=== PATIENT | male | born 1930 | race Caucasian/White ===

== ENCOUNTER 2017-05-24 11:26 | Emergency (ER) | payer MEDICARE, OTHER ==
[2017-05-24] MEDS ORDERED: SODIUM CHLORIDE 0.9% 1,000 ML IV ONE (12:29)
--- NOTE | 2017-05-24 12:32 | ED Physician Documentation ---
PD HPI URI - Stated complaint Stated Complaint: COUGH - Chief complaint Chief Complaint: Heent - History obtained from History obtained from: Patient, Family - History of Present Illness Timing - onset: How many weeks ago (1) Timing duration: Weeks (1) Timing details: Gradual onset Pain level max: 0 Pain level now: 0 Associated symptoms: Fever (2 days ago), Chills, Nasal congestion, Rhinorrhea, Sore throat, Dry cough. No: Hemoptysis, Chest pain, Dyspnea Contributing factors: Sick contact (family at over the holidays) Improves by: Rest Worsened by: Activity, Other (feels weak and tired) Recently seen: Not recently seen - Additional information Additional information: has a history of colon cancer, not currently under treatment. Review of Systems Ten Systems: 10 systems reviewed and negative Constitutional: reports: Fever. denies: Chills Ears: denies: Ear pain Nose: reports: Rhinorrhea / runny nose, Congestion Throat: reports: Sore throat Respiratory: reports: Cough GI: denies: Abdominal Pain, Nausea, Vomiting, Diarrhea Skin: denies: Rash Musculoskeletal: denies: Neck pain, Back pain Neurologic: denies: Focal weakness, Numbness, Headache PD PAST MEDICAL HISTORY - Past Medical History Past Medical History: Yes Cardiovascular: Hypertension Respiratory: None Endocrine/Autoimmune: None GI: Colon polyps, Other : Benign prostate hypertrophy, Other HEENT: Chronic hearing loss Psych: None Musculoskeletal: None Derm: Other - Past Surgical History General: Bowel surgery, Colonoscopy, EGD, Other Ortho: Rotator cuff repair Cardiovascular: Other Derm: Other - Present Medications Home Medications: Ambulatory Orders Medication Instructions Recorded Confirmed Calcium Carbonate [Calcium] 600 mg PO DAILY 11/07/12 11/07/12 Flaxseed 340 gm PO DAILY 11/07/12 11/07/12 Magnesium 0 mg PO DAILY 11/07/12 11/07/12 Oregano Oil [Oil of Oregano] 1,500 mg PO DAILY 11/07/12 11/07/12 Ubidecarenone [Coq-10] 100 mg PO DAILY 11/07/12 11/07/12 Vitamin B Complex [B Complete] 1 each PO DAILY 11/07/12 11/07/12 Testosterone Cream 04/03/13 04/03/13 Azithromycin [Zithromax] 250 mg PO DAILY #4 tablet 05/24/17 Benzonatate [Tessalon Perle] 100 - 200 mg PO TID PRN #30 capsule 05/24/17 - Allergies Allergies/Adverse Reactions: Allergies Allergy/AdvReac Type Severity Reaction Status Date / Time pseudoephedrine HCl * Allergy Intermediate Diaphoresis Verified 05/24/17 11:46 [From Sudafed] milk AdvReac RUNNY NOSE Verified 05/24/17 11:46 - Social History Does the pt smoke?: No Smoking Status: Never smoker PD ED PE NORMAL - Vitals Vital signs reviewed: Yes - General General: Alert and oriented X 3, No acute distress - HEENT HEENT: Ears normal, Moist mucous membranes, Pharynx benign - Neck Neck: Supple, no meningeal sign, No adenopathy - Cardiac Cardiac: RRR - Respiratory Respiratory: No respiratory distress, Other (Rhonchi LLL) - Abdomen Abdomen: Soft, Non tender, Non distended - Derm Derm: Warm and dry, No rash - Neuro Neuro: Alert and oriented X 3 - Psych Psych: Normal mood, Normal affect Results - Vitals Vitals: Vital Signs - 24 hr 05/24/17 05/24/17 11:29 13:17 Temperature 37.4 C 37.5 C Heart Rate 71 73 Respiratory 17 20 Rate Blood Pressure 153/71 H 147/67 H O2 Saturation 96 97 Oxygen O2 Source Room air - Labs Labs: Laboratory Tests 05/24/17 05/24/17 12:45 12:45 WBC 7.8 RBC 4.62 L Hgb 13.9 L Hct 40.8 L MCV 88.3 MCH 30.1 MCHC 34.0 RDW 14.6 Plt Count 123 L MPV 7.1 L Neut # 6.2 Lymph # 0.8 L [place] # 0.7 Eos # 0.0 Baso # 0.0 Absolute Nucleated RBC 0.00 Nucleated RBC % 0.0 Sodium 135 Potassium 4.0 Chloride 100 L Carbon Dioxide 25 Anion Gap 10.0 BUN 16 Creatinine 1.1 Estimated GFR (MDRD) 63 L Glucose 107 H Calcium 8.9 Total Bilirubin 0.9 AST 32 ALT 19 Alkaline Phosphatase 63 Total Protein 7.1 Albumin 3.5 Globulin 3.6 Albumin/Globulin Ratio 1.0 Lipase 52 H - Rads (name of study) cxr Radiology: Prelim report reviewed, EMP read contemporaneously (appears to have a LLL infiltrate on my viewing), See rad report (No acute disease) PD MEDICAL DECISION MAKING - ED course Complexity details: reviewed results, re-evaluated patient, considered differential, d/w patient, d/w family ED course: Patient is an 86-year-old male who presents to the emergency department with what appears to be a left lower lobe pneumonia. Given Rocephin and azithromycin here. Also given IV fluids and feels better. He is well-appearing , nontoxic. Afebrile. No hypoxia. No respiratory distress. Will place him on antibiotics for home and follow-up closely with his doctor. Patient and family counseled regarding signs and symptoms for which I believe and urgent re- evaluation would be necessary. Patient with good understanding of and agreement to plan and is comfortable going home at this time This document was made in part using voice recognition software. While efforts are made to proofread this document, sound alike and grammatical errors may occur. Departure - Departure Disposition: 01 Home, Self Care Clinical Impression: Pneumonia Qualifiers: Pneumonia type: due to unspecified organism Laterality: left Lung location: lower lobe of lung Qualified Code(s): J18.1 - Lobar pneumonia, unspecified organism Condition: Good Instructions: ED Pneumonia Adult Follow-Up: Wiley Guerra MD [Primary Care Provider] - Within 1 week Prescriptions: Azithromycin [Zithromax] 250 mg PO DAILY #4 tablet Benzonatate [Tessalon Perle] 100 - 200 mg PO TID PRN #30 capsule PRN Reason: Cough Comments: Take all antibiotics until gone. Return if you worsen.
[2017-05-24 12:53] LABS: BASOPHILS % (AUTO) 0.4 %; HGB - HEMOGLOBIN 13.9 g/dL (14.0-18.0); LYMPHOCYTES # (AUTO) 0.8 10^3/uL (1.5-3.5); LYMPHOCYTES % (AUTO) 10.3 %; MEAN CORPUSCULAR HEMOGLOBIN 30.1 pg (27.0-31.0); MEAN CORPUSCULAR VOLUME 88.3 fL (80.0-94.0); MEAN PLATELET VOLUME 7.1 fL (7.4-11.4); MONOCYTES # (AUTO) 0.7 10^3/uL (0.0-1.0); MONOCYTES % (AUTO) 9.1 %; NEUTROPHILS # (AUTO) 6.2 10^3/uL (1.5-6.6); NEUTROPHILS % (AUTO) 80.2 %; PLT - PLATELET COUNT 123 10^3/uL (130-450); RED BLOOD COUNT 4.62 10^6/uL (4.70-6.10); RED CELL DISTRIBUTION WIDTH 14.6 % (12.0-15.0); WHITE BLOOD COUNT 7.8 x10^3/uL (4.8-10.8)
--- NOTE | 2017-05-24 12:57 | XRAY Preliminary Report ---
Exam: XR CHEST 2 VIEW PA/LAT IMPRESSION: COPD. No acute findings. [facility] SITE ID: [id number]
--- NOTE | 2017-05-24 13:00 | XRAY Report ---
EXAM: CHEST RADIOGRAPHY EXAM DATE: 05/24/2017 12:45 PM. CLINICAL HISTORY: Cough, fever. COMPARISON: Two-view chest 10/11/2011. TECHNIQUE: 2 views. FINDINGS: Lungs/Pleura: No focal opacities evident. No pleural effusion. No pneumothorax. Normal volumes. Mediastinum: Stable cardiomegaly. Other: There is flattening of the diaphragms. IMPRESSION: COPD. No acute findings. [facility] Referring Provider Line: [phone] SITE ID: [id number]
[2017-05-24 13:09] LABS: ALBUMIN 3.5 g/dL (3.2-5.5); BILIRUBIN,TOTAL 0.9 mg/dL (0.2-1.0); CALCIUM 8.9 mg/dL (8.5-10.3); CREATININE 1.1 mg/dL (0.6-1.2); TOTAL PROTEIN 7.1 g/dL (6.7-8.2)
[2017-05-24] MEDS ORDERED: cefTRIAXone 1 GM VIAL IVP STA (13:10)
[2017-05-24] MEDS ORDERED: AZITHROMYCIN 250 MG TABLET PO STA (13:11)
[2017-05-24 13:18] VITALS: BP 147/67
== END 2017-05-24 14:05 | disposition home or self-care (01) ==
LOC: ED 11:26
DX: J18.9 Pneumonia, unspecified organism (principal); I10 Essential (primary) hypertension; Z85.038 Personal history of other malignant neoplasm of large intestine; Z86.010 Personal history of colon polyps; N40.0 Benign prostatic hyperplasia without lower urinary tract symptoms
CPT/HCPCS: 36415; 71020; 80053; 83690; 85025; 96361; 96374; 99283; 99284; A9270

== ENCOUNTER 2017-08-01 11:11 | Outpatient (CLI) | payer MEDICARE, OTHER ==
[2017-08-01] MEDS ORDERED: IOPAMIDOL-300 100 ML VIAL IVP ONE ×3 (11:12→12:33)
[2017-08-01 11:58] LABS: CALCIUM 8.8 mg/dL (8.5-10.3); CREATININE 1.3 mg/dL (0.6-1.2)
[2017-08-01] MEDS ORDERED: IOPAMIDOL-300 100 ML VIAL ONE (12:38)
--- NOTE | 2017-08-01 15:49 | CT Report ---
CT SINUSES WITHOUT CONTRAST: 08/01/2017 CLINICAL INDICATION: Chronic sinusitis. TECHNIQUE: Axial CT images of the paranasal sinuses were obtained without contrast, following which sagittal and coronal reconstructions were performed. FINDINGS: There is mild mucosal thickening in the right maxillary sinus and left frontal sinus. The ostiomeatal units are patent bilaterally. No osseous destruction is seen. The nasal septum is midline. The visualized orbital contents are unremarkable. IMPRESSION: MILD CHRONIC SINUSITIS. CT DOSE REDUCTION STATEMENT In accordance with CT protocol optimization, one or more of the following dose reduction techniques were utilized for this exam: automated exposure control, adjustment of mA and/or KV based on patient size, or use of iterative reconstructive technique. TD: 08/01/2017 15:48
--- NOTE | 2017-08-01 15:52 | CT Report ---
CT CHEST WITH CONTRAST: 08/01/2017 CLINICAL INDICATION: Cough. TECHNIQUE: Axial CT images of the chest were obtained with 80 mL Isovue 300 intravenously. COMPARISON: 11/03/2010. FINDINGS: The heart and great vessels demonstrate mild atherosclerotic calcification. No hilar or mediastinal lymphadenopathy is present. The lungs demonstrate dependent atelectasis. No suspicious pulmonary nodule or mass lesion is present. No effusion or pneumothorax is seen. Osseous structures demonstrate degenerative changes. Limited evaluation of upper abdominal structures demonstrates normal adrenal glands. IMPRESSION: MILD ATELECTASIS. NO EVIDENCE OF ACUTE CARDIOPULMONARY DISEASE. CT DOSE REDUCTION STATEMENT In accordance with CT protocol optimization, one or more of the following dose reduction techniques were utilized for this exam: automated exposure control, adjustment of mA and/or KV based on patient size, or use of iterative reconstructive technique. TD: 08/01/2017 15:51
== END 2017-08-01 11:12 | disposition home or self-care (01) ==
LOC: DI.S 11:11 → DI 11:12
PROVIDERS: ATTEND Physician Assistant Medical
DX: J32.9 Chronic sinusitis, unspecified (principal); J98.11 Atelectasis
CPT/HCPCS: 36415; 70486; 71260; 80048; Q9967

== ENCOUNTER 2017-10-31 08:00 | Outpatient (CLI) | payer MEDICARE, OTHER ==
[2017-10-31 19:08] LABS: BASOPHILS % (AUTO) 0.3 %; EOSINOPHILS % (AUTO) 0.1 %; HGB - HEMOGLOBIN 15.4 g/dL (14.0-18.0); LYMPHOCYTES # (AUTO) 1.8 10^3/uL (1.5-3.5); MEAN CORPUSCULAR HEMOGLOBIN 29.7 pg (27.0-31.0); MEAN CORPUSCULAR HGB CONC 33.5 g/dL (32.0-36.0); MEAN CORPUSCULAR VOLUME 88.8 fL (80.0-94.0); MEAN PLATELET VOLUME 7.7 fL (7.4-11.4); MONOCYTES # (AUTO) 0.6 10^3/uL (0.0-1.0); MONOCYTES % (AUTO) 8.3 %; NEUTROPHILS # (AUTO) 5.3 10^3/uL (1.5-6.6); NEUTROPHILS % (AUTO) 68.3 %; PLT - PLATELET COUNT 176 10^3/uL (130-450); RED BLOOD COUNT 5.17 10^6/uL (4.70-6.10); WHITE BLOOD COUNT 7.8 x10^3/uL (4.8-10.8)
[2017-10-31 19:36] LABS: ALBUMIN/GLOBULIN RATIO 1.2 (1.0-2.2); ALKALINE PHOSPHATASE 77 IU/L (42-121); ALT ALANINE AMINOTRANSFERASE 20 IU/L (10-60); AST ASPARTATE AMINOTRANSFERASE 27 IU/L (10-42); BUN - BLOOD UREA NITROGEN 19 mg/dL (6-20); CALCIUM 8.9 mg/dL (8.5-10.3); CARBON DIOXIDE - CO2 28 mmol/L (21-32); CHLORIDE 105 mmol/L (101-111); CHOL/HDL RATIO 5.1 (<5.0); CHOLESTEROL 178 mg/dL; CREATININE 1.2 mg/dL (0.6-1.2); GFR - MDRD 57 (>89); GLUCOSE 92 mg/dL (70-100); HDL CHOLESTEROL 35 mg/dL; LDL CHOLESTEROL,CALCULATED 126 mg/dL; LDL/HDL RATIO 3.6 (<3.6); SODIUM 138 mmol/L (135-145); TOTAL PROTEIN 7.4 g/dL (6.7-8.2); VLDL CHOLESTEROL 17 mg/dL
== END 2017-10-31 08:01 | disposition home or self-care (01) ==
LOC: LAB.WCP 08:00
PROVIDERS: ATTEND Physician Assistant Medical
DX: E78.5 Hyperlipidemia, unspecified (principal); C61 Malignant neoplasm of prostate
CPT/HCPCS: 36415; 80053; 80061; 83721; 84153; 85025

== ENCOUNTER 2018-03-28 09:53 | Outpatient (CLI) | payer MEDICARE, OTHER ==
--- NOTE | 2018-03-28 14:16 | MRI Report ---
Reason: FACIAL DROOP Procedure Date: 03/28/2018 Accession Number: [id number] / [id number] Procedure: MRI - Brain W/O CPT Code: FULL RESULT: EXAM: MRI BRAIN WITHOUT CONTRAST EXAM DATE: 03/28/2018 11:28 AM. CLINICAL HISTORY: Facial droop. COMPARISON: None. TECHNIQUE: Multiplanar, multisequence T1-weighted and fluid-sensitive MR sequences of the brain were performed. Sequences optimized for routine evaluation. Other: Thin section axial T2 weighted FFE 3D through the internal auditory canals. IV Contrast: None. FINDINGS: Brain Volume: Mild generalized probably age-related cerebral volume loss. Parenchyma/Dura: No mass, acute infarct or hemorrhage. Moderately prominent patchy, nodular and confluent bilateral cerebral white matter disease. Findings are nonspecific, but consistent with fairly prominent chronic microangiopathy and age-related white matter signal changes. Ventricles/Cisterns: No hydrocephalus. No abnormal extra-axial fluid collection or hemorrhage. Orbits: Bilateral lens extractions. Sella Turcica: No evidence for space-occupying mass. IAC: No space-occupying mass or nodule. Unremarkable contours of the canalicular and cisternal segments of the 7th and 8th cranial nerves. Fluid signal is present within the inner ear structures bilaterally as expected. Vasculature: Normal signal flow void is seen in the major arterial structures at the skull base. Sinuses: Mild nonspecific ethmoid sinus mucosal thickening. The nasal septum is bowed to the right of midline. Bones: No focal pathologic appearing marrow signal changes. Other: Just below the occiput, superficial subcutaneous midline rounded sharply demarcated 2.4 mm nodule, just under the skin, likely an incidental sebaceous cyst. IMPRESSION: 1. Chronic generalized age-related changes. 2. No acute intracranial abnormality. 3. No evidence for space-occupying lesion in the regions of the internal auditory canals. [facility]
== END 2018-03-28 09:54 | disposition home or self-care (01) ==
LOC: DI 09:53
PROVIDERS: ATTEND Family Medicine
DX: R29.810 Facial weakness (principal)
CPT/HCPCS: 70551

== ENCOUNTER 2018-04-09 10:15 | Outpatient (CLI) | payer MEDICARE, OTHER ==
[2018-04-09 13:14] LABS: BASOPHILS % (AUTO) 0.2 %; EOSINOPHILS % (AUTO) 0.2 %; HGB - HEMOGLOBIN 15.1 g/dL (14.0-18.0); LYMPHOCYTES # (AUTO) 1.6 10^3/uL (1.5-3.5); LYMPHOCYTES % (AUTO) 25.4 %; MEAN CORPUSCULAR HEMOGLOBIN 31.5 pg (27.0-31.0); MEAN CORPUSCULAR HGB CONC 35.4 g/dL (32.0-36.0); MEAN PLATELET VOLUME 7.7 fL (7.4-11.4); MONOCYTES # (AUTO) 0.5 10^3/uL (0.0-1.0); MONOCYTES % (AUTO) 8.3 %; NEUTROPHILS # (AUTO) 4.1 10^3/uL (1.5-6.6); NEUTROPHILS % (AUTO) 65.9 %; PLT - PLATELET COUNT 153 10^3/uL (130-450); RED BLOOD COUNT 4.78 10^6/uL (4.70-6.10); RED CELL DISTRIBUTION WIDTH 13.8 % (12.0-15.0); WHITE BLOOD COUNT 6.2 x10^3/uL (4.8-10.8)
[2018-04-09 13:26] LABS: ALBUMIN 3.9 g/dL (3.2-5.5); ALBUMIN/GLOBULIN RATIO 1.3 (1.0-2.2); ALKALINE PHOSPHATASE 81 IU/L (42-121); ALT ALANINE AMINOTRANSFERASE 19 IU/L (10-60); AST ASPARTATE AMINOTRANSFERASE 27 IU/L (10-42); BILIRUBIN,TOTAL 0.9 mg/dL (0.2-1.0); BUN - BLOOD UREA NITROGEN 19 mg/dL (6-20); CALCIUM 8.7 mg/dL (8.5-10.3); CARBON DIOXIDE - CO2 29 mmol/L (21-32); CHLORIDE 105 mmol/L (101-111); CHOL/HDL RATIO 4.6 (<5.0); CHOLESTEROL 158 mg/dL; CREATININE 1.3 mg/dL (0.6-1.2); GFR - MDRD 52 (>89); GLUCOSE 105 mg/dL (70-100); HDL CHOLESTEROL 34 mg/dL; LDL CHOLESTEROL,CALCULATED 93 mg/dL; LDL/HDL RATIO 2.7 (<3.6); SODIUM 140 mmol/L (135-145); TOTAL PROTEIN 6.9 g/dL (6.7-8.2); VLDL CHOLESTEROL 31 mg/dL
[2018-04-09 13:50] LABS: FOLATE 21.84 ng/mL (5.90 - >24.8)
== END 2018-04-09 10:16 | disposition home or self-care (01) ==
LOC: LAB.WCP 10:15
PROVIDERS: ATTEND Family Medicine
DX: I10 Essential (primary) hypertension (principal); E78.5 Hyperlipidemia, unspecified; R41.3 Other amnesia
CPT/HCPCS: 36415; 80053; 80061; 82607; 82746; 83721; 85025

== ENCOUNTER 2018-12-06 08:00 | Outpatient (CLI) | payer MEDICARE, OTHER ==
[2018-12-06 18:32] LABS: BASOPHILS % (AUTO) 0.2 %; EOSINOPHILS # (AUTO) 0.1 10^3/uL (0.0-0.7); HGB - HEMOGLOBIN 15.8 g/dL (14.0-18.0); LYMPHOCYTES # (AUTO) 1.8 10^3/uL (1.5-3.5); MEAN CORPUSCULAR HGB CONC 32.6 g/dL (32.0-36.0); MEAN CORPUSCULAR VOLUME 92.2 fL (80.0-94.0); MONOCYTES # (AUTO) 0.7 10^3/uL (0.0-1.0); MONOCYTES % (AUTO) 8.9 %; NEUTROPHILS # (AUTO) 5.5 10^3/uL (1.5-6.6); NEUTROPHILS % (AUTO) 67.7 %; PLT - PLATELET COUNT 180 10^3/uL (130-450); RED BLOOD COUNT 5.26 10^6/uL (4.70-6.10); RED CELL DISTRIBUTION WIDTH 14.3 % (12.0-15.0); WHITE BLOOD COUNT 8.1 x10^3/uL (4.8-10.8)
[2018-12-06 18:54] LABS: ALBUMIN 4.1 g/dL (3.2-5.5); ALBUMIN/GLOBULIN RATIO 1.3 (1.0-2.2); ALKALINE PHOSPHATASE 88 IU/L (42-121); ALT ALANINE AMINOTRANSFERASE 20 IU/L (10-60); AST ASPARTATE AMINOTRANSFERASE 26 IU/L (10-42); BUN - BLOOD UREA NITROGEN 21 mg/dL (6-20); CALCIUM 9.2 mg/dL (8.5-10.3); CARBON DIOXIDE - CO2 28 mmol/L (21-32); CHLORIDE 106 mmol/L (101-111); CHOL/HDL RATIO 4.2 (<5.0); CHOLESTEROL 157 mg/dL; CREATININE 1.4 mg/dL (0.6-1.2); GFR - MDRD 48 (>89); GLUCOSE 103 mg/dL (70-100); HDL CHOLESTEROL 37 mg/dL; LDL CHOLESTEROL,CALCULATED 78 mg/dL; LDL/HDL RATIO 2.1 (<3.6); SODIUM 143 mmol/L (135-145); TOTAL PROTEIN 7.2 g/dL (6.7-8.2); VLDL CHOLESTEROL 42 mg/dL
== END 2018-12-06 08:01 | disposition home or self-care (01) ==
LOC: LAB.WCP 08:00
PROVIDERS: ATTEND Family Medicine
DX: E78.5 Hyperlipidemia, unspecified (principal); I10 Essential (primary) hypertension; R00.0 Tachycardia, unspecified
CPT/HCPCS: 36415; 80053; 80061; 83721; 84443; 85025

== ENCOUNTER 2019-06-03 12:19 | Emergency (ER) | payer MEDICARE, OTHER ==
--- NOTE | 2019-06-03 12:29 | ED Physician Documentation ---
History of Present Illness - Stated complaint Stated Complaint: CP, SORE LT ARM/SHOULDER - Additonal information Additional information: This is an 88-year-old male with a history hypertension and a ventral hernia, who presents with left-sided chest pain and left shoulder pain. This began several days ago in the absence of any inciting factors, patient denies obvious trauma or straining events. He follows with Dr. Nena Starr of cardiology, he reportedly had a stress test and echocardiogram, and they as far as they know look okay. Patient denies shortness of breath, denies hemoptysis. He has had a bit of a cough. He describes that chest pain is a constant soreness, moderate in severity, It is located over the lateral chest and the anterior shoulder, and is reproducible with certain movements and with pressure in the area. No history of blood clots, no leg swelling, no pain with breathing. Review of Systems Constitutional: denies: Fever Nose: denies: Rhinorrhea / runny nose Cardiac: reports: Chest pain / pressure Respiratory: reports: Cough Skin: denies: Rash Neurologic: denies: Generalized weakness, Syncope PD PAST MEDICAL HISTORY - Past Medical History Cardiovascular: Hypertension Respiratory: None Endocrine/Autoimmune: None GI: Colon polyps, Other : Benign prostate hypertrophy, Other HEENT: Chronic hearing loss Psych: None Musculoskeletal: None Derm: Other - Past Surgical History General: Bowel surgery, Colonoscopy, EGD, Other Ortho: Rotator cuff repair Cardiovascular: Other Derm: Other - Present Medications Home Medications: Ambulatory Orders Medication Instructions Recorded Confirmed Calcium Carbonate [Calcium] 600 mg PO DAILY 11/07/12 11/07/12 Flaxseed 340 gm PO DAILY 11/07/12 11/07/12 Magnesium 0 mg PO DAILY 11/07/12 11/07/12 Oregano Oil [Oil of Oregano] 1,500 mg PO DAILY 11/07/12 11/07/12 Ubidecarenone [Coq-10] 100 mg PO DAILY 11/07/12 11/07/12 Vitamin B Complex [B Complete] 1 each PO DAILY 11/07/12 11/07/12 Testosterone Cream 04/03/13 04/03/13 Azithromycin [Zithromax] 250 mg PO DAILY #4 tablet 05/24/17 Benzonatate [Tessalon Perle] 100 - 200 mg PO TID PRN #30 capsule 05/24/17 - Allergies Allergies/Adverse Reactions: Allergies Allergy/AdvReac Type Severity Reaction Status Date / Time pseudoephedrine HCl * Allergy Intermediate Diaphoresis Verified 06/03/19 12:30 [From Sudafed] milk AdvReac RUNNY NOSE Verified 06/03/19 12:30 - Social History Does the pt smoke?: No Smoking Status: Never smoker PD ED PE NORMAL - Vitals Vital signs reviewed: Yes - General General: Alert and oriented X 3, No acute distress - HEENT HEENT: PERRL - Neck Neck: Supple, no meningeal sign - Cardiac Cardiac: RRR - Respiratory Respiratory: No respiratory distress, Clear bilaterally, Other (Chest de la o normal in appearance, patient has some tenderness to palpation over the lateral left upper chest wall just anterior to the axilla, and also on the left anterior deltoid. Strength and neurovascular exam is normal.) - Abdomen Abdomen: Soft, Non tender, Non distended - Derm Derm: Warm and dry - Extremities Extremities: No deformity - Neuro Neuro: Alert and oriented X 3 - Psych Psych: Normal mood, Normal affect Results - Vitals Vitals: Vital Signs - 24 hr 06/03/19 06/03/19 06/03/19 12:26 14:00 14:30 Temperature 36.8 C Heart Rate 81 73 77 Respiratory 18 18 18 Rate Blood Pressure 152/80 H 130/81 H 148/77 H O2 Saturation 99 98 97 06/03/19 06/03/19 06/03/19 15:52 16:10 16:14 Temperature 36.9 C 36.9 C Heart Rate 78 72 72 Respiratory 18 18 18 Rate Blood Pressure 137/78 H 171/93 H 171/93 H O2 Saturation 95 98 16 L Oxygen O2 Source Room air - EKG (time done) 12:34 Other comments: Other comments (Rate 81, rhythm sinus, there is a right bundle branch block, no ST segment elevation or depression. First-degree AV block present) - Labs Labs: Laboratory Tests 06/03/19 06/03/19 06/03/19 12:36 12:36 12:36 WBC 7.7 RBC 4.72 Hgb 14.6 Hct 43.9 MCV 93.0 MCH 30.9 MCHC 33.3 RDW 13.7 Plt Count 166 MPV 9.0 Neut # (Auto) 5.8 Lymph # (Auto) 1.3 L [place] # (Auto) 0.5 Eos # (Auto) 0.0 Baso # (Auto) 0.0 Absolute Nucleated RBC 0.00 Nucleated RBC % 0.0 Sodium 139 Potassium 3.7 Chloride 102 Carbon Dioxide 30 Anion Gap 7.0 BUN 24 H Creatinine 1.4 H Estimated GFR (MDRD) 48 L Glucose 98 Calcium 9.0 Total Bilirubin 1.0 AST 22 ALT 15 Alkaline Phosphatase 74 Troponin I High Sens 3.3 Total Protein 7.3 Albumin 4.0 Globulin 3.3 Albumin/Globulin Ratio 1.2 Lipase 61 H 06/03/19 14:55 WBC RBC Hgb Hct MCV MCH MCHC RDW Plt Count MPV Neut # (Auto) Lymph # (Auto) [place] # (Auto) Eos # (Auto) Baso # (Auto) Absolute Nucleated RBC Nucleated RBC % Sodium Potassium Chloride Carbon Dioxide Anion Gap BUN Creatinine Estimated GFR (MDRD) Glucose Calcium Total Bilirubin AST ALT Alkaline Phosphatase Troponin I High Sens 2.9 Total Protein Albumin Globulin Albumin/Globulin Ratio Lipase - Rads (name of study) CXR Radiology: Other (No acute cardiopulmonary abnormalities) PD MEDICAL DECISION MAKING - ED course Complexity details: considered differential (ACS, pneumothorax, pneumonia, musculoskeletal pain, pulmonary embolism, pleural effusion, dysrhythmia) ED course: On arrival patient is well-appearing, his vital signs show mild hypertension, otherwise unremarkable. He has normal oxygen saturation and heart rate. He does have some reproducible chest wall tenderness on the left side. His EKG shows a right bundle branch block, I do not have a old EKG for comparison, but there are no convincing signs of acute ischemia. Labs show no leukocytosis, normal blood counts, his chemistry panel shows a stable mild creatinine elevation at 1.4, otherwise unremarkable. His high-sensitivity troponin is negative at 3.3, I did obtain a delta troponin over 2 hours later which is stable and negative at 2.9. Given that his chest pain has been ongoing for 4 days, 2 negative troponins make ACS highly unlikely. Pulmonary embolism was considered, the patient has no leg swelling, no history of blood clots, no p leuritic chest pain, normal oxygen saturation, normal heart rate, and the location of his pain in the shoulder and reproducibility with palpation would very atypical for PE. His chest x-ray is unremarkable. He does have slight lipase elevation but no abdominal tenderness, and he has had a low level lipase elevation in the past. 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 Zamudio and reviewed the case, he agrees that based on our information today this does not appear to be ACS at this time and patient appears appropriate for outpatient follow-up. Pt already has an appointment in a few weeks. I discussed with the patient that if he has any worsening symptoms including new or changing chest pain, trouble breathing, leg swelling, blood in his sputum, or any other concerning symptoms he needs to return to the emergency department immediately. He agrees, continues to be well-appearing, and was discharged home in the care of his . Departure - Departure Disposition: , Self Care Clinical Impression: Chest pain Condition: Good Instructions: ED Chest Pain Atypical Unkn Cause Comments: You were seen today for chest and shoulder pain. I do not see signs of heart strain or lung problems on our work-up today. I spoke with Dr. Werner and he will see you for follow up as scheduled. It is unclear what is the cause of your chest pain, but if you have any worsening or changing symptoms such as shortness of breath, coughing up blood, leg swelling, return to the emergency department immediately. It is okay to take [id number] pain relief such as Tylenol for the discomfort. Discharge Date/Time: 06/03/19 16:14
[2019-06-03 12:50] LABS: BASOPHILS % (AUTO) 0.4 %; EOSINOPHILS % (AUTO) 0.1 %; HGB - HEMOGLOBIN 14.6 g/dL (14.0-18.0); LYMPHOCYTES # (AUTO) 1.3 10^3/uL (1.5-3.5); LYMPHOCYTES % (AUTO) 16.6 %; MEAN CORPUSCULAR HEMOGLOBIN 30.9 pg (27.0-31.0); MEAN CORPUSCULAR HGB CONC 33.3 g/dL (32.0-36.0); MONOCYTES # (AUTO) 0.5 10^3/uL (0.0-1.0); MONOCYTES % (AUTO) 6.9 %; NEUTROPHILS # (AUTO) 5.8 10^3/uL (1.5-6.6); NEUTROPHILS % (AUTO) 75.6 %; PLT - PLATELET COUNT 166 10^3/uL (130-450); RED BLOOD COUNT 4.72 10^6/uL (4.70-6.10); RED CELL DISTRIBUTION WIDTH 13.7 % (12.0-15.0); WHITE BLOOD COUNT 7.7 x10^3/uL (4.8-10.8)
[2019-06-03 13:14] LABS: ALBUMIN/GLOBULIN RATIO 1.2 (1.0-2.2); CREATININE 1.4 mg/dL (0.6-1.2); TOTAL PROTEIN 7.3 g/dL (6.7-8.2)
--- NOTE | 2019-06-03 13:27 | XRAY Report ---
Reason: L upper chest pain Procedure Date: 06/03/2019 Accession Number: [id number] / [id number] Procedure: XR - Chest 2 View X-Ray CPT Code: 70475 Final Report FULL RESULT: EXAM: CHEST RADIOGRAPHY EXAM DATE: 06/03/2019 12:52 PM. CLINICAL HISTORY: L upper chest pain. COMPARISON: CHEST 2 VIEW 05/30/2017 3:41 PM CHEST 2 VIEW PA/LAT 05/24/2017 12:35 PM. TECHNIQUE: 2 views. FINDINGS: Lungs/Pleura: No acute focal opacities evident. Chronic changes left base No pleural effusion. No pneumothorax. Normal volumes. Mediastinum: Heart and mediastinal contours are unremarkable. Other: Degenerative change in the spine. IMPRESSION: No acute findings 2-view chest radiography. [facility]
[2019-06-03 16:11] VITALS: BP 171/93
== END 2019-06-03 16:14 | disposition home or self-care (01) ==
LOC: ED 12:19
DX: R07.9 Chest pain, unspecified (principal); M25.512 Pain in left shoulder; I45.10 Unspecified right bundle-branch block; I44.0 Atrioventricular block, first degree; I10 Essential (primary) hypertension
CPT/HCPCS: 36415; 71046; 80053; 83690; 84484; 85025; 93005; 99284

== ENCOUNTER 2019-06-17 12:00 | Outpatient (CLI) | payer MEDICARE, OTHER ==
--- NOTE | 2019-06-18 03:52 | XRAY Report ---
Reason: LEFT SHOULDER IMPINGEMENT SYNDROME Procedure Date: 06/17/2019 Accession Number: [id number] / [id number] Procedure: WCP - Shoulder 2 View LT CPT Code: Final Report FULL RESULT: EXAM: LEFT SHOULDER RADIOGRAPHY EXAM DATE: 06/17/2019 12:21 PM. CLINICAL HISTORY: LEFT SHOULDER IMPINGEMENT SYNDROME. COMPARISON: None. TECHNIQUE: 2 views. FINDINGS: Bones: Normal. No fracture or bone lesion. Joints: There is narrowing and osteophyte formation within the glenohumeral and acromioclavicular joints. No dislocation or subluxation. Soft tissues: The visualized hemithorax is unremarkable. No soft tissue swelling. IMPRESSION: Degenerative changes without evidence of fracture or dislocation. [facility]
== END 2019-06-17 23:59 | disposition home or self-care (01) ==
LOC: DI.WCP 12:00
PROVIDERS: ATTEND Physician Assistant Medical
DX: M19.012 Primary osteoarthritis, left shoulder (principal)

== ENCOUNTER 2019-08-21 20:00 | Outpatient (CLI) | payer MEDICARE, OTHER | END 2019-08-21 23:59 | disposition home or self-care (01) | LOC: LAB.WCP 20:00 | PROVIDERS: ATTEND Nurse Practitioner Family | DX: L29.0 Pruritus ani (principal) | CPT/HCPCS: 87177; 87209 ==

== ENCOUNTER 2019-11-05 08:51 | Outpatient (CLI) | payer MEDICARE, OTHER ==
[2019-11-05 11:50] LABS: BASOPHILS % (AUTO) 0.3 %; EOSINOPHILS % (AUTO) 2.7 %; HGB - HEMOGLOBIN 13.9 g/dL (14.0-18.0); LYMPHOCYTES % (AUTO) 24.2 %; MEAN CORPUSCULAR HEMOGLOBIN 30.6 pg (27.0-31.0); MEAN CORPUSCULAR HGB CONC 33.2 g/dL (32.0-36.0); MEAN CORPUSCULAR VOLUME 92.3 fL (80.0-94.0); MEAN PLATELET VOLUME 9.9 fL (7.4-11.4); MONOCYTES % (AUTO) 8.5 %; NEUTROPHILS % (AUTO) 63.9 %; PLT - PLATELET COUNT 165 10^3/uL (130-450); RED BLOOD COUNT 4.54 10^6/uL (4.70-6.10); RED CELL DISTRIBUTION WIDTH 14.8 % (12.0-15.0); WHITE BLOOD COUNT 7.2 x10^3/uL (4.8-10.8)
[2019-11-05 11:51] LABS: ABNORMAL LYMPHS % (MANUAL) 0 %; BAND NEUTROPHILS % (MANUAL) 0 %
[2019-11-05 12:10] LABS: ALBUMIN/GLOBULIN RATIO 1.3 (1.0-2.2); ALKALINE PHOSPHATASE 78 IU/L (42-121); ALT ALANINE AMINOTRANSFERASE 16 IU/L (10-60); AST ASPARTATE AMINOTRANSFERASE 21 IU/L (10-42); BILIRUBIN,TOTAL 0.9 mg/dL (0.2-1.0); BUN - BLOOD UREA NITROGEN 21 mg/dL (6-20); CALCIUM 8.6 mg/dL (8.5-10.3); CARBON DIOXIDE - CO2 28 mmol/L (21-32); CHLORIDE 106 mmol/L (101-111); CHOL/HDL RATIO 4.9 (<5.0); CHOLESTEROL 151 mg/dL; CREATININE 1.3 mg/dL (0.6-1.2); GLUCOSE 98 mg/dL (70-100); HDL CHOLESTEROL 31 mg/dL; LDL CHOLESTEROL,CALCULATED 92 mg/dL; SODIUM 141 mmol/L (135-145); VLDL CHOLESTEROL 28 mg/dL
[2019-11-05 12:11] LABS: PSA FREE 0.64 ng/mL (0.16-2.81)
[2019-11-05 12:12] LABS: PSA TOTAL 8.68 ng/mL (0.000-2.000)
[2019-11-05 12:14] LABS: LYMPHOCYTES # (MANUAL) 1.7 10^3/uL (1.5-3.5); LYMPHOCYTES % (MANUAL) 24 %; MONOCYTES # (MANUAL) 0.5 10^3/uL (0.0-1.0); PLATELET ESTIMATE, MANUAL NORMAL (130-450,000) (NORMAL); PLATELET MORPHOLOGY NORMAL APPEARANCE (NORMAL); RBC MORPHOLOGY (MULTIPLE) NORMAL APPEARANCE (NORMAL)
[2019-11-05 12:15] LABS: DIFFERENTIAL COMMENT MANUAL DIFFERENTIAL
== END 2019-11-05 08:52 | disposition home or self-care (01) ==
LOC: LAB.WCP 08:51
PROVIDERS: ATTEND Physician Assistant Medical
DX: I10 Essential (primary) hypertension (principal); E78.9 Disorder of lipoprotein metabolism, unspecified; C61 Malignant neoplasm of prostate
CPT/HCPCS: 36415; 80053; 80061; 83721; 84153; 84154; 85025